=== PATIENT | female | born 1945 | race Caucasian/White ===

== ENCOUNTER 2016-10-07 09:12 | Observation (INO) ==
[2016-10-07] MEDS ORDERED: CeFAZolin Pre 2,000 MG/100 ML 2,000 MG/100 ML BAG IVPB ONE (09:52)
--- NOTE | 2016-10-07 10:46 | Anesthesia Evaluation PreOp ---
Date of Encounter: 10/07/16 Time of Encounter: 10:29 - Past History Planned Operation: R-small finger Exic Cardiac History: HTN (maintained on Carvedilol, Losartan, Lasix, Norvasc), Hyperlipidemia (miantained on Pravastatin), Other ("leaky valve") Pulmonary History: Denies Any Significant HX RESTAURANT MANAGER History: Denies Any Significant HX Other Medical History: GERD (maintained on Pantoprazole), Other (Urinary incontinence) Anesthesia History: No Prior Anesthetic Complications, Past Anesthesia (Foot surgery skin Ca excision, L-breast lumpectomy, L-foot surgery) Alcohol Use: rarely Drug use: none Medications and Allergies Acetaminophen [Pain Relief] 1,000 mg PO Q6H PRN 10/07/16 [History] Amlodipine [Norvasc] 5 mg PO DAILY 10/07/16 [History] Calcium Carbonate/Vitamin D3 [Calcium 500-Vit D3 200 Tablet] 1 tab PO DAILY [History] Carvedilol 3.125 mg PO BID 10/07/16 [History] Furosemide [Lasix] 40 mg PO DAILY 10/07/16 [History] Losartan Potassium [Cozaar] 100 mg PO DAILY 10/07/16 [History] Multivit-Min/Iron/Folic/Lutein [Centrum Silver Women Tablet] 1 tab PO DAILY [History] Pantoprazole Sodium [Protonix] 40 mg PO DAILY 10/07/16 [History] Pravastatin Sodium [Pravachol] 20 mg PO DAILY 10/07/16 [History] Allergies Sulfa (Sulfonamide Antibiotics) Allergy (Verified 06/06/16 19:53) Vomiting - Meds/Allergy Pre-op Review Medications Reviewed: Yes Allergies Reviewed: Yes Beta Blockers on Current Med List: Yes (Carvedilol) If Beta Blockers taken, Date/Time (Last Dose taken): last @ 10/06 @ 2300 Anesthesia Exam - HEENT Pupil (Motor): Pupils equal, EOMI Mallampati: II Teeth: Normal Oral Opening: Greater than 3 - RESTAURANT MANAGER LOC: Oriented RESTAURANT MANAGER Motor: Normal RUE, Normal LUE, Normal RLE, Normal LLE, Normal Face [employer]AURANT MANAGER Sensory: Normal: RUE, LUE, RLE, LLE, Face - Cardiac Rhythm: Regular Murmur: None - Pulmonary Breath Sounds: bilateral Clear Respiratory Effort: Symmetrical Anesthesia Assess/Plan ASA Score: 2 (HTN, Chol,) Modified Zhen Scale for Level of Consciousness: Cooperative, oriented, and tranquil Anesthetic Plan: MAC Monitoring Plan: Standard Monitors Recovery Plan: PACU Anes Supervising Prov Stmt: Pt seen/evaluated, R&B discussed, questions answered and consent obtained. Denisse Mays MD
[2016-10-07] MEDS ORDERED: *HR* FentaNYL (PF) 100 MCG/2 ML VIAL ONE (10:50)
[2016-10-07] MEDS ORDERED: *HR* Midazolam HCl 2 MG/2 ML VIAL ONE (10:50)
[2016-10-07] MEDS ORDERED: *HR* Propofol 200 MG/20 ML VIAL IVP ONE (10:51)
[2016-10-07] MEDS ORDERED: Gabapentin 300 MG CAPSULE PO STA (10:52)
[2016-10-07] MEDS ORDERED: Metoclopramide 10 MG/2 ML VIAL IVP ONE (10:52)
[2016-10-07] MEDS ORDERED: Famotidine 20 MG/2 ML VIAL IVP ONE (10:52)
[2016-10-07] MEDS ORDERED: Acetaminophen IV 1,000 MG/100 ML INFUS..BTL IVPB ONE (10:52)
[2016-10-07] MEDS ORDERED: Lidocaine -MPF 2% 2 ML VIAL ONE (10:52)
[2016-10-07] MEDS ORDERED: Lidocaine -MPF 2% 5 ML VIAL INFILT ONE (11:04)
--- NOTE | 2016-10-07 11:06 | History & Physical Report ---
Date of Encounter: 10/07/16 Time of Encounter: 11:06 24 Hour HP Update - Instructions Instructions: If the History and Physical is less than 30 days old and was completed prior to A.M. admission and or procedure and has NOT been updated on calendar day of procedure please complete this update prior to performing procedure. - Update Patient reports changes in Medical Condition: No Changes in assessment/condition: No Changes in Medication: No Preop tests/diagnostics Reviewed: Yes Surgery Remains Indicated: Yes Consent for Planned Operative Procedure(s) Verified: Yes - Pre-Operative Checklist Preoperative Checklist Indicated: Yes Prophylactic Antibiotic Ordered: Yes Is VTE Prophylaxis Indicated?: Yes
[2016-10-07] MEDS ORDERED: *HR* OxyCODONE Immed Rel 5 MG TABLET PO ONE (11:08)
--- NOTE | 2016-10-07 11:08 | Discharge Summary ---
Outpatient Proc Discharge Plan - Plan Additional Instructions: Remove dressings in 5 days, gently wash with soap and water and cover with a band-Aid Elevate hand. Do hand exercises Use ice for 1 hour 3 times a day for the next 2 days. No heavy lifting. No sports or gym activities follow-up in 2 weeks with Gricel Rodríguez PA-C Home Medications: Acetaminophen [Pain Relief] 1,000 mg PO Q6H PRN 10/07/16 [History] Amlodipine [Norvasc] 5 mg PO DAILY 10/07/16 [History] Calcium Carbonate/Vitamin D3 [Calcium 500-Vit D3 200 Tablet] 1 tab PO DAILY [History] Carvedilol 3.125 mg PO BID 10/07/16 [History] Furosemide [Lasix] 40 mg PO DAILY 10/07/16 [History] Losartan Potassium [Cozaar] 100 mg PO DAILY 10/07/16 [History] Multivit-Min/Iron/Folic/Lutein [Centrum Silver Women Tablet] 1 tab PO DAILY [History] Pantoprazole Sodium [Protonix] 40 mg PO DAILY 10/07/16 [History] Pravastatin Sodium [Pravachol] 20 mg PO DAILY 10/07/16 [History]
--- NOTE | 2016-10-07 11:16 | Anesthesia Evaluation PreOp ---
Date of Encounter: 10/07/16 Time of Encounter: 11:13 - Past History Planned Operation: R-CTR Other Medical History: Diabetes Type II (maintained on Glimepiride, Victoza, Glucometer), GERD (maintained on Omeprazole,) Anesthesia History: Past Anesthesia (Radha, Uterine Ablation, ) Alcohol Use: rarely Drug use: none Medications and Allergies Acetaminophen [Pain Relief] 1,000 mg PO Q6H PRN 10/07/16 [History] Amlodipine [Norvasc] 5 mg PO DAILY 10/07/16 [History] Calcium Carbonate/Vitamin D3 [Calcium 500-Vit D3 200 Tablet] 1 tab PO DAILY [History] Carvedilol 3.125 mg PO BID 10/07/16 [History] Furosemide [Lasix] 40 mg PO DAILY 10/07/16 [History] Losartan Potassium [Cozaar] 100 mg PO DAILY 10/07/16 [History] Multivit-Min/Iron/Folic/Lutein [Centrum Silver Women Tablet] 1 tab PO DAILY [History] Pantoprazole Sodium [Protonix] 40 mg PO DAILY 10/07/16 [History] Pravastatin Sodium [Pravachol] 20 mg PO DAILY 10/07/16 [History] Allergies Sulfa (Sulfonamide Antibiotics) Allergy (Verified 06/06/16 19:53) Vomiting - Meds/Allergy Pre-op Review Medications Reviewed: Yes Allergies Reviewed: Yes Beta Blockers on Current Med List: No Anesthesia Exam O2 Sat Height 1.52 m Height 1.52 m Weight 93.894 kg Weight 93.894 kg O2 Sat by Pulse Oximetry 96 Vital Signs Temp Pulse Resp BP Pulse Ox 96.4 F L 72 16 163/72 96 10/07/16 09:34 10/07/16 09:34 10/07/16 09:34 10/07/16 09:34 10/07/16 09:34 Height: 5'8" Weight: 223# BMI = 41 NPO (# of Hours): MNoc Anesthesia Assess/Plan ASA Score: 3 Modified Zhen Scale for Level of Consciousness: Cooperative, oriented, and tranquil Anesthetic Plan: Regional, MAC Monitoring Plan: Standard Monitors Recovery Plan: Other Anes Supervising Prov Stmt: Pt seen/evaluated, R&B discussed, questions answered and consent obtained. Denisse Mays MD
--- NOTE | 2016-10-07 12:24 | Operative Note ---
Date of procedure: 10/07/16 Pre-op diagnosis: Right small finger mass Post-op diagnosis: same Procedure: Right small finger excision of superficial mass less than 1.5 cm Anesthesia: MAC, local Surgeon: Jonny Mckoy Estimated blood loss (cc): 2 Tourniquet Time (Minutes): 5 Specimen: Sent to pathology Condition: stable Disposition: same day Procedure in Detail: The patient received IV antibiotics in the holding area, brought back into the operating room and placed on the OR table in supine position with the affected upper extremity on a hand table. A sign in was performed. The patient received IV sedation, a tourniquet was placed on the upper extremity close to the axilla, and extremity was prepped and draped in the usual sterile fashion. A timeout was performed. The patient was given a digital block at the base of the right small finger using 4 mL of a 50-50 mixture of 0.5% Marcaine and 2% lidocaine. The right upper extremity was then elevated, exsanguinated with an Justen wrap, and the tourniquet was raised to a pressure of 250 mmHg. The mass is located on the dorsum of the small finger just distal to the MP joint, midline. A 2 cm longitudinal midline incision was made over the dorsum of the mass. The skin was then sharply dissected off the mass beneath. The mass was a soft cystic white mass. During the dissection the mass ruptured, it was filled with a thick white creamy material, resembling an epidermal cyst. This was bluntly elevated off the extensor tendon. The excised mass was about 1 -1.5 cm long, this was sent off as a pathology specimen. Using a scalpel, I sharply excised any remnants of the mass. The tourniquet was let down. The wounds copiously irrigated normal saline. The subcutaneous tissue was then course of bipolar; however there is some persistent oozing. A small amount of [place] was used here to help with hemostasis. The skin incision was then closed with 5-0 nylon vertical mattress and simple sutures. Sterile dressings applied. The patient was then taken to the recovery room in stable condition. The patient will follow-up at postoperative week #2 for suture removal and confirm the pathology report.
--- NOTE | 2016-10-07 13:53 | Anesthesia Evaluation Post Op ---
Date of Encounter: 10/07/16 Time of Encounter: 12:10 - Vital Signs Vital Signs: Vital Signs/O2 Sat/Glucose, Most Current Temp Pulse Resp BP Pulse Ox 10/07/16 12:56 62 18 127/90 96 10/07/16 12:53 59 16 146/81 99 10/07/16 12:35 98.8 F 62 18 131/67 100 10/07/16 09:55 96.4 F L 72 16 163/72 - Lungs Lungs: Clear Ascult./Percussion - Airway Airway: Non-obstructed - Cardiovascular Regular Rate - Mental Status Mental Status: Alert & Oriented, Answers Appropriately - Pain Pain Scale: 0 Pain Scale used: Numeric (1 - 10) - Nausea Vomiting Nausea Vomiting: Not Present - Hydration Hydration: Tolerates oral liquids, Able to void - Discharge PostOp Status: Discharge Patient to home Anes Supervising Prov Stmt: Pt seen/evaluated, VSS and pt has met criteria for discharge to home. - MD Davon
[2016-10-07] MEDS ORDERED: *HR* Promethazine 25 MG/ML VIAL IVP SCH (14:15)
[2016-10-07] MEDS ORDERED: *HR* Promethazine 25 MG/ML VIAL ONE (14:17)
[2016-10-07] MEDS ORDERED: *HR* HYDROcodone/Acet 5/325 mg TABLET PO PRN (17:15)
[2016-10-08 07:08] VITALS: BP 167/89
[2016-10-08] MEDS ORDERED: CALCIUM CARBONATE PO SCH (09:00)
[2016-10-08] MEDS ORDERED: VITAMIN D3 PO SCH (09:00)
[2016-10-08] MEDS ORDERED: Furosemide 40 MG TABLET PO SCH (09:00)
[2016-10-08] MEDS ORDERED: amLODIPine 5 MG TABLET PO SCH (09:00)
== END 2016-10-08 10:16 | disposition home or self-care (01) ==
LOC: 3BNU 09:12 → SAMDAYPAV 09:12 → 3BNU 16:34 → SAMDAYPAV 16:40 → 3BNU 17:03
PROVIDERS: ADMIT Orthopaedic Surgery Hand Surgery; ATTEND Orthopaedic Surgery Hand Surgery